=== PATIENT | female | born 1985 | race Caucasian/White ===

== ENCOUNTER 2022-07-08 19:39 | Emergency (ER) | payer MEDICAID ==
[~2022-07-08] VITALS: Ht 165.1 cm; Wt 79.4 kg
[~2022-07-08 19:39] MED LIST: FERR-142 PO; PREN-385 PO
--- NOTE | 2022-07-08 20:26 | NUR ---
Dr. Bhakta examining patient.
[2022-07-08 20:30] VITALS: BP 148/96
--- NOTE | 2022-07-08 20:34 | NUR ---
TO LOBBY A/W BED AMBULATORY
[2022-07-08] MEDS ORDERED: KETOROLAC 30 MG/ML VIAL IVP ONE (20:40)
[2022-07-08] MEDS ORDERED: ONDANSETRON 4 MG/2 ML VIAL IVP ONE (20:40)
[2022-07-08] MEDS ORDERED: NACL 0.9% 1,000 ML IV ONE (20:40)
--- NOTE | 2022-07-08 20:52 | NUR ---
Blood for labwork drawn from left arm per clinical applications manager. Patient tolerated well.
[2022-07-08 20:58] LABS: BASOPHILS % (AUTO) 0.1 % (0.0-2.0); EOSINOPHILS % (AUTO) 0.2 % (0.0-4.0); HEMATOCRIT 40.9 % (36-48); HEMOGLOBIN 13.9 g/dL (12.0-16.0); LYMPHOCYTES # (AUTO) 1.7 K/uL (2.5-16.5); LYMPHOCYTES % (AUTO) 16.9 % (20.5-51.1); MEAN CORPUSCULAR HEMOGLOBIN 28 pg (27-31); MEAN CORPUSCULAR HGB CONC 34 g/dL (33-37); MEAN CORPUSCULAR VOLUME 82.1 fL (80-94); MONOCYTES # (AUTO) 0.5 K/uL (0.8-1.0); MONOCYTES % (AUTO) 4.8 % (1.7-9.3); NEUTROPHILS # (AUTO) 7.9 K/uL (1.8-7.7); PLATELET COUNT (AUTO) 272 K/uL (140-450); RED BLOOD CELL COUNT(AUTO) 4.98 MIL/uL (4.20-5.40); RED CELL DISTRIBUTION WIDTH 13.9 % (11.6-13.7); WHITE BLOOD COUNT (AUTO) 10.1 K/uL (4.8-10.8)
--- NOTE | 2022-07-08 21:06 | NUR ---
PT TAKEN TO BED 7
[2022-07-08 21:27] LABS: ALBUMIN 4.2 g/dL (3.4-5.0); ANION GAP 11.2 (8-16); CARBON DIOXIDE 27.6 mmol/L (21-32); CREATININE 0.7 mg/dL (0.6-1.3); POTASSIUM 3.8 mmol/L (3.5-5.1); TOTAL BILIRUBIN 0.4 mg/dL (0.0-1.0)
[2022-07-08] MEDS ORDERED: ONDA-188 PO (22:15)
[2022-07-08] MEDS ORDERED: ACET-10509 PO (22:15)
--- NOTE | 2022-07-08 22:27 | NUR ---
Dr. Ordaz explained results and treatment plans.
[2022-07-08 22:49] VITALS: BP 112/70
--- NOTE | 2022-07-08 22:50 | NUR ---
Patient discharged with v/s stable. Written and verbal after care instructions given and explained. Patient alert, oriented and verbalized understanding of instructions. Ambulatory with steady gait. All questions addressed prior to discharge. ID band removed. Patient advised to follow up with PMD. Rx of TYLENOL AND ZOFRAN given. Patient educated on indication of medication including possible reaction and side effects. Opportunity to ask questions provided and answered. vss, a/ox4, ambulatory, unlabored breathing, and calm demeanor.
== END 2022-07-08 22:50 | disposition home or self-care (01) ==
LOC: MED 19:39
DX: A08.4 Viral intestinal infection, unspecified (principal)
CPT/HCPCS: 36415; 80053; 85025; 96361; 96374; 96375; 99284; J1885; J2405; J7030